=== PATIENT | male | born 2005 | race Caucasian/White ===

== ENCOUNTER 2024-06-25 07:33 | Emergency (ER) | payer OTHER ==
[2024-06-25 07:43] VITALS: BP 125/72; PULSE 91; RESP 18; TEMP 99; BMI 29.7
[2024-06-25] MEDS ORDERED: ACETAMINOPHEN INJECTION 100 ML ONE (09:01)
[2024-06-25] MEDS ORDERED: FAMOTIDINE 20 MG/50 ML IVPB 20 MG/50 ML MG IVPB ONE (09:01)
[2024-06-25] MEDS ORDERED: ONDANSETRON 4 MG/2 ML VIAL ONE (09:01)
[2024-06-25] MEDS ORDERED: MAG HYDROX/AL HYDROX/SIMETH 30 ML UNIT-DOSE CUP ONE (09:01)
[2024-06-25 09:09] LABS: EOS % 0.9 % (0-4.5); HEMATOCRIT 43.1 % (35.4-49); HEMOGLOBIN 14.9 GM/dL (11.7-16.9); LYMPH % 22.6 % (8-40); MCH 29.3 pg (25.7-33.7); MCHC 34.6 g/dl (32.0-35.9); MEAN CELL VOLUME 84.8 fl (80-96); MEAN PLT VOLUME 8.5 fl (7.5-11.1); MONO % 11.4 % (3.8-10.2); NEUT % 65.1 % (42.8-82.8); PLATELET COUNT 214 10^3/uL (134-434); RBC 5.08 M/mm3 (4.00-5.60); RDW 12.7 % (11.9-15.9); WHITE BLOOD COUNT 3.2 K/mm3 (4.0-10.0)
[2024-06-25] MEDS: MAG HYDROX/AL HYDROX/SIMETH 30 ML UNIT-DOSE CUP PO ONE (09:09)
[2024-06-25] MEDS: FAMOTIDINE 20 MG/50 ML IVPB 20 MG/50 ML MG IVPB ONE (09:09)
[2024-06-25] MEDS: ACETAMINOPHEN 1000 MG/100 ML BAG IVPB ONE (09:09)
[2024-06-25] MEDS: ONDANSETRON 4 MG/2 ML VIAL IVPUSH ONE (09:09)
[2024-06-25 09:30] LABS: POTASSIUM 4.4 mmol/L (3.5-5.1)
[2024-06-25 09:32] LABS: ALBUMIN 4.1 g/dl (3.4-5.0); CALCIUM 9.4 mg/dL (8.5-10.1)
[2024-06-25 09:37] LABS: BILIRUBIN,TOTAL 0.5 mg/dL (0.2-1); TOT PROT 7.8 g/dl (6.4-8.2)
[2024-06-25 17:25] LABS: HIV INTERPRETATION NEGATIVE (NEGATIVE)
== END 2024-06-25 11:03 | disposition home or self-care (01) ==
LOC: JER 07:33
PROC: 3E033GC Introduction of Other Therapeutic Substance into Peripheral Vein, Percutaneous Approach (ICD-10-PCS; principal; 2024-06-25)
PROC: 3E033NZ Introduction of Analgesics, Hypnotics, Sedatives into Peripheral Vein, Percutaneous Approach (ICD-10-PCS; 2024-06-25)
PROC: 3E033GC Introduction of Other Therapeutic Substance into Peripheral Vein, Percutaneous Approach (ICD-10-PCS; 2024-06-25)
DX: K52.9 Noninfective gastroenteritis and colitis, unspecified (principal); R11.2 Nausea with vomiting, unspecified; Z20.822 Contact with and (suspected) exposure to COVID-19
CPT/HCPCS: 0241U-QW; 36415; 80053; 83690; 85025; 86803; 87389; 96365; 96375; 99284-25; J0131